=== PATIENT | female | born 1985 | race Caucasian/White ===

== ENCOUNTER 2022-12-07 04:06 | Day surgery (SDC) | payer OTHER ==
[2022-12-02 10:05] VITALS: BMI 32.5
[2022-12-07] MEDS ORDERED: BUPIVACAINE HCL/PF 0.5% (5MG/ML) 10 ML VIAL ONE (10:26)
[2022-12-07] MEDS ORDERED: MIDAZOLAM HCL 2 MG/2 ML SINGLE DOSE VIAL ONE (11:27)
[2022-12-07] MEDS ORDERED: PROPOFOL 20 ML ONE (11:27)
[2022-12-07] MEDS ORDERED: ROCURONIUM BROMIDE 50 MG/5 ML SYRINGE ONE (11:27)
[2022-12-07] MEDS ORDERED: ONDANSETRON 4 MG/2 ML VIAL ONE ×2 (11:40→12:33)
[2022-12-07] MEDS ORDERED: DEXAMETHASONE SOD PHOSPHATE 4 MG/1 ML VIAL ONE (11:50)
[2022-12-07] MEDS ORDERED: KETOROLAC TROMETHAMINE 30 MG/1 ML VIAL ONE (11:50)
[2022-12-07] MEDS ORDERED: BUPIVACAINE HCL/PF 0.5% (5 MG/ML) 30 ML VIAL IJ ONE ×2 (12:08)
[2022-12-07] MEDS ORDERED: NEOSTIGMINE METHYLSULFATE 0.5 MG/1 ML - 10 ML MDV ONE (12:33)
[2022-12-07] MEDS ORDERED: GLYCOPYRROLATE 0.2 MG/1 ML VIAL ONE (12:33)
[2022-12-07 14:07] VITALS: RESP 20
[2022-12-07 16:18] VITALS: BP 106/61; PULSE 75; TEMP 97.8
== END 2022-12-07 16:00 | disposition home or self-care (01) ==
LOC: JASU-SURG 04:06
PROVIDERS: ATTEND Student in an Organized Health Care Education/Training Program
PROC: 3E033GC Introduction of Other Therapeutic Substance into Peripheral Vein, Percutaneous Approach (ICD-10-PCS; principal; 2022-12-07 11:00)
DX: D50.9 Iron deficiency anemia, unspecified (principal)
CPT/HCPCS: 81025; 88302-TC; 94760